=== PATIENT | male | born 1980 | race Two or more races ===

== ENCOUNTER 2018-05-28 18:06 | Emergency (ER) | payer BC ==
[2018-05-28 19:52] LABS: URINE SOURCE CLEAN C
[2018-05-28 19:55] LABS: URINE BILIRUBIN NEGATIVE (NEGATIVE); URINE BLOOD NEGATIVE (NEGATIVE); URINE GLUCOSE (UA) NEGATIVE (NEGATIVE); URINE KETONE NEGATIVE (NEGATIVE); URINE LEUKOCYTE ESTERASE NEGATIVE (NEGATIVE); URINE NITRATE NEGATIVE (NEGATIVE); URINE PROTEIN NEGATIVE (NEGATIVE); URINE UROBILINOGEN 0.2 E.U./dL (0.2 - 1.0)
[2018-05-28 19:56] LABS: URINE CLARITY CLEAR (CLEAR); URINE COLOR YELLOW; URINE MICROSCOPIC INDICATED? YES
[2018-05-28 19:58] LABS: URINE RBC 0-2 /hpf (0-5)
[2018-05-28 19:59] LABS: URINE BACTERIA FEW /hpf (NONE SEEN); URINE EPITHELIAL CELLS FEW /lpf (FEW); URINE WBC 0-2 /hpf (0-5)
--- NOTE | 2018-05-28 20:05 | ED Physician Chart ---
ED Chief Complaint/HPI - Patient Information Date Seen:: 05/28/18 Time Seen:: 19:59 Chief Complaint:: Headache and chest pain History of Present Illness:: 37 yo male had headache and diffuse pain, discomfort in the chest and epigastric area for 1 day. Patient denied nausea or vomiting. 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 Allergies:: Allergies Allergy/AdvReac Type Severity Reaction Status Date / Time No Known Allergies Allergy Verified 05/28/18 18:17 Vitals:: Vital Signs - 8 hr 05/28/18 18:18 Temp 97.8 F HR 71 RR 18 BP 108/74 O2 Sat % 99 ED Review of Systems - Review of Systems General/Constitutional: No fever Skin: No bruising Head: Headache Eyes: No pain ENT: No nasal drainage Neck: No neck pain Cardio Vascular: Chest pain Pulmonary: No SOB GI: No nausea, No vomiting Musculoskeletal: No muscle pain Psychiatric: Anxiety Neurological: No focal symptoms ED Past Medical History - Past Medical History Past Medical History: Other (psoriasis) Social History: Non Smoker, Alcohol, No Drug Use Surgical History: None Family Medical History - Family Member Mother History Unknown: Yes Ethnicity: Hx Family Cancer: No Hx Family Coronary Artery Disease: No Hx Family Congestive Heart Failure: No Hx Family Hypertension: No Hx Family Stroke: No Hx Family Diabetes: No Hx Family Seizures: No Hx Family Dementia: No Hx Family AIDS: No Hx Family HIV: No Hx Family COPD: No Hx Family Hepatitis: No Hx Family Psychiatric Problems: No Hx Family Tuberculosis: No ED Physical Exam - Physical Examination General/Constitutional: Awake Head: Atraumatic Other Head comments:: Tenderness at bilateral greater occipital nerve innervation areas Eyes: PERRL, EOMI Skin: No ecchymosis ENMT: Nasal exam nl Neck: No nuchal rigidity Respiratory: No Wheeze/Rhonchi/Rales Cardio Vascular: RRR, No murmur, gallop, rubs, NL S1 S2 GI: No tenderness/rebounding/guarding, Nondistended Extremities: normal strength in all extremities Neuro/Psych: No focal deficits ED Labs/Radiology/EKG Results - Lab Results Results: Laboratory Tests 05/28/18 19:20 Urine Color YELLOW Urine Clarity CLEAR Urine pH 6.0 Ur Specific [place] 1.025 Urine Protein NEGATIVE Urine Glucose (UA) NEGATIVE Urine Ketones NEGATIVE Urine Blood NEGATIVE Urine Nitrate NEGATIVE Urine Bilirubin NEGATIVE Urine Urobilinogen 0.2 Ur Leukocyte Esterase NEGATIVE Laboratory Last Values WBC 8.4 Th/cmm (4.8-10.8) 05/28/18 20:08 RBC 5.37 Mil/cmm (4.30-5.70) 05/28/18 20:08 Hgb 15.4 gm/dL (12-16) 05/28/18 20:08 Hct 47.3 % (41.0-60) 05/28/18 20:08 MCV 88.1 fl (80-99) 05/28/18 20:08 MCH 28.6 pg (26.0-30.0) 05/28/18 20:08 MCHC Differential 32.5 pg (28.0-36.0) 05/28/18 20:08 RDW 12.0 % (11.5-20.0) 05/28/18 20:08 Plt Count 278 Th/cmm (150-400) 05/28/18 20:08 MPV 7.3 fl 05/28/18 20:08 Neutrophils % 51.3 % (40.0-80.0) 05/28/18 20:08 Lymphocytes % 37.9 % (20.0-50.0) 05/28/18 20:08 Monocytes % 8.4 % (2.0-10.0) 05/28/18 20:08 Eosinophils % 1.8 % (0.0-5.0) 05/28/18 20:08 Basophils % 0.6 % (0.0-2.0) 05/28/18 20:08 Sodium 138 mEq/L (136-145) 05/28/18 20:08 Potassium 3.7 mEq/L (3.5-5.1) 05/28/18 20:08 Chloride 104 mEq/L (98-107) 05/28/18 20:08 Carbon Dioxide 25.2 mEq/L (21.0-31.0) 05/28/18 20:08 Anion Gap 12.5 (7.0-16.0) 05/28/18 20:08 BUN 15 mg/dL (7-25) 05/28/18 20:08 Creatinine 0.8 mg/dL (0.7-1.3) 05/28/18 20:08 Est GFR ( Amer) > 60.0 ml/min (>90) 05/28/18 20:08 Est GFR (Non-Af Amer) > 60.0 ml/min 05/28/18 20:08 BUN/Creatinine Ratio 18.8 05/28/18 20:08 Glucose 103 mg/dL (70-105) 05/28/18 20:08 Calcium 9.3 mg/dL (8.6-10.3) 05/28/18 20:08 Total Bilirubin 0.4 mg/dL (0.3-1.0) 05/28/18 20:08 AST 21 U/L (13-39) 05/28/18 20:08 ALT 40 U/L (7-52) 05/28/18 20:08 Alkaline Phosphatase 89 U/L (34-104) 05/28/18 20:08 Troponin I < 0.01 ng/mL (0.01-0.05) L 05/28/18 20:08 B-Natriuretic Peptide 6.6 pg/mL (5.0-100.0) 05/28/18 20:08 Total Protein 6.7 gm/dL (6.0-8.3) 05/28/18 20:08 Albumin 4.2 gm/dL (4.2-5.5) 05/28/18 20:08 Globulin 2.5 gm/dL 05/28/18 20:08 Albumin/Globulin Ratio 1.7 (1.0-1.8) 05/28/18 20:08 Lipase 21 U/L (11-82) 05/28/18 20:08 Urine Source CLEAN C 05/28/18 19:20 Urine Color YELLOW 05/28/18 19:20 Urine Clarity CLEAR (CLEAR) 05/28/18 19:20 Urine pH 6.0 (4.6 - 8.0) 05/28/18 19:20 Ur Specific [place] 1.025 (1.005-1.030) 05/28/18 19:20 Urine Protein NEGATIVE mg/dL (NEGATIVE) 05/28/18 19:20 Urine Glucose (UA) NEGATIVE mg/dL (NEGATIVE) 05/28/18 19:20 Urine Ketones NEGATIVE mg/dL (NEGATIVE) 05/28/18 19:20 Urine Blood NEGATIVE (NEGATIVE) 05/28/18 19:20 Urine Nitrate NEGATIVE (NEGATIVE) 05/28/18 19:20 Urine Bilirubin NEGATIVE (NEGATIVE) 05/28/18 19:20 Urine Urobilinogen 0.2 E.U./dL (0.2 - 1.0) 05/28/18 19:20 Ur Leukocyte Esterase NEGATIVE (NEGATIVE) 05/28/18 19:20 Urine RBC 0-2 /hpf (0-5) H 05/28/18 19:20 Urine WBC 0-2 /hpf (0-5) 05/28/18 19:20 Ur Epithelial Cells FEW /lpf (FEW) 05/28/18 19:20 Urine Bacteria FEW /hpf (NONE SEEN) 05/28/18 19:20 Urine Opiates Screen NEGATIVE (NEGATIVE) 05/28/18 19:20 Urine Methadone Screen NEGATIVE (NEGATIVE) 05/28/18 19:20 Ur Barbiturates Screen NEGATIVE (NEGATIVE) 05/28/18 19:20 Ur Tricyclics Screen NEGATIVE (NEGATIVE) 05/28/18 19:20 Ur Phencyclidine Scrn NEGATIVE (NEGATIVE) 05/28/18 19:20 Amphetamines Screen NEGATIVE (NEGATIVE) 05/28/18 19:20 U Methamphetamines Scrn NEGATIVE (NEGATIVE) 05/28/18 19:20 U Benzodiazepines Scrn NEGATIVE (NEGATIVE) 05/28/18 19:20 U Cocaine Metab Screen NEGATIVE (NEGATIVE) 05/28/18 19:20 U Cannabinoids Screen NEGATIVE (NEGATIVE) 05/28/18 19:20 - Radiology Results Results: CT head without contrast: No hemorrhage, minimal left frontal white matter disease, may need follow up MRI. Left maxillary sinusitis ED Assessment - Assessment General Assessment: Bilateral greater occipital neuralgia CT head finding of minimal left frontal white matter disease Assessment/Comments:: CBC, CMP, Trop I, BNP UA, urine drug screen CT head without contrast Toradol 30mg IM D/c home F/u PCP and neurologist with a MRI brain to rule out any white matter disease Return to ER if headache worsen ED Septic Shock - . Is Septic Shock (SBP<90, OR Lactate>4 mmol\L) present?: No - <6hrs of presentation: Vital Signs: Vital Signs - 8 hr 05/28/18 18:18 Temp 97.8 F HR 71 RR 18 BP 108/74 O2 Sat % 99 ED Reassessment (Disposition) - Reassessment Reassessment Condition:: Improved - Patient Disposition Discharge/Transfer:: Home
[2018-05-28 20:12] LABS: AMPHETAMINE URINE NEGATIVE (NEGATIVE); BARBITURATES URINE NEGATIVE (NEGATIVE)
[2018-05-28 20:13] LABS: BENZODIAZEPINES QUAL URINE NEGATIVE (NEGATIVE); CANNABINOID THC NEGATIVE (NEGATIVE); COCAINE METABOLITE QUAL URINE NEGATIVE (NEGATIVE); METHADONE URINE NEGATIVE (NEGATIVE); METHAMPHETAMINES QUAL URINE NEGATIVE (NEGATIVE); OPIATES (MORPHINE) QUAL. URINE NEGATIVE (NEGATIVE); PHENCYCLIDINE (PCP) URINE NEGATIVE (NEGATIVE); TRICYCLICS (TCA) QUAL. URINE NEGATIVE (NEGATIVE)
[2018-05-28 20:14] LABS: % BASOPHILS 0.6 % (0.0-2.0); % EOSINOPHILS 1.8 % (0.0-5.0); % LYMPHOCYTES 37.9 % (20.0-50.0); % MONOCYTES 8.4 % (2.0-10.0); % NEUTROPHILS 51.3 % (40.0-80.0); BASOPHILE ABSOLUTE 0.1 Th/cumm (0-0.2); EOSINOPHILE ABSOLUTE 0.2 Th/cmm (0.1-0.4); HEMATOCRIT 47.3 % (41.0-60); HEMOGLOBIN 15.4 gm/dL (12-16); LYMPHOCYTE ABSOLUTE 3.2 Th/cmm (1.5-3.0); MEAN CELL VOLUME 88.1 fl (80-99); MEAN CORPUSCULAR HEMOGLOBIN 28.6 pg (26.0-30.0); MEAN CORPUSCULAR HGB CONC 32.5 pg (28.0-36.0); MEAN PLATELET VOLUME 7.3 fl; MONOCYTE ABSOLUTE 0.7 Th/cmm (0.3-1.0); NEUTROPHILE ABSOLUTE 4.2 Th/cmm (1.8-8.0); PLATELET COUNT 278 Th/cmm (150-400); RED BLOOD COUNT 5.37 Mil/cmm (4.30-5.70); WHITE BLOOD COUNT 8.4 Th/cmm (4.8-10.8)
[2018-05-28 20:31] LABS: ALB/GLOB RATIO 1.7 (1.0-1.8); ALBUMIN 4.2 gm/dL (4.2-5.5); ALKALINE PHOSPHATASE 89 U/L (34-104); ANION GAP 12.5 (7.0-16.0); BILIRUBIN,TOTAL 0.4 mg/dL (0.3-1.0); BUN - UREA NITROGEN 15 mg/dL (7-25); CALCIUM SERUM 9.3 mg/dL (8.6-10.3); CARBON DIOXIDE 25.2 mEq/L (21.0-31.0); CHLORIDE 104 mEq/L (98-107); CREATININE - SERUM 0.8 mg/dL (0.7-1.3); GFR AFRICAN-AMERICAN > 60.0 ml/min (>90); GFR NON AFRICAN-AMERICAN > 60.0 ml/min; GLUCOSE 103 mg/dL (70-105); LIPASE 21 U/L (11-82); POTASSIUM SERUM 3.7 mEq/L (3.5-5.1); SGOT 21 U/L (13-39); SGPT/ALT 40 U/L (7-52); SODIUM SERUM 138 mEq/L (136-145); TOTAL PROTEIN,SERUM 6.7 gm/dL (6.0-8.3)
--- NOTE | 2018-05-29 08:57 | Diagnostic Imaging Report ---
Head CT without intravenous contrast Indication: pain Comparison: None Technique: Axial images were obtained from the vertex to the skull base without IV contrast. Coronal reconstructions were made. Total DLP: 698, CTD I 37 FINDINGS: Images of the brain obtained without contrast demonstrate no acute hemorrhage. The ventricles and basal cisterns are patent. There is subtle minimal low-attenuation change involving the high left frontal lobe. No mass effect or midline shift. There is opacification of the left maxillary sinus. Additional mucosal thickening of paranasal sinuses are noted. No skull fracture or focal soft tissue swelling. IMPRESSION: No evidence of acute intracranial hemorrhage. Subtle Minimal left high frontal lobe white matter disease. Findings are nonspecific and may be sequela previous chronic ischemic process. Correlation with old exams would be helpful for comparison. In addition, Follow-up MRI would provide additional detail and assessment of this finding Left maxillary sinusitis, probably chronic.
== END 2018-05-28 21:36 | disposition home or self-care (01) ==
LOC: ER 18:06
DX: M54.81 Occipital neuralgia (principal); F41.9 Anxiety disorder, unspecified
CPT/HCPCS: 99284; 96372; 70450; 84484; 83880; 36415; 80307; 85025; 81001; 83690; 80053; J1885; Z7502

== ENCOUNTER 2018-08-22 13:30 | Emergency (ER) | payer BC ==
--- NOTE | 2018-08-22 14:10 | ED Physician Chart ---
ED Chief Complaint/HPI - Patient Information Date Seen:: 08/22/18 Time Seen:: 13:55 Chief Complaint:: abdominal pain History of Present Illness:: Patient's had upper abdominal pain for last 2 weeks. No vomiting or diarrhea. No dysuria. No chills or fever. Pain appears to be unrelated to eating. Patient was seen here for headache in June and a CAT scan of the head was done which showed no evidence of acute intracranial hemorrhage. At that time he had milder abdominal pain. Patient has never had an EGD or colonoscopy. Allergies:: Allergies Allergy/AdvReac Type Severity Reaction Status Date / Time No Known Allergies Allergy Verified 05/28/18 18:17 Vitals:: Vital Signs - 8 hr 08/22/18 13:48 Temp 97.6 F HR 73 RR 16 BP 117/70 O2 Sat % 97 Historian:: Patient Review:: Nurse's Note Reviewed ED Review of Systems - Review of Systems General/Constitutional: No fever, No chills, No weight loss, No weakness, No diaphoresis, No edema, No loss of appetite Skin: No skin lesions, No rash, No bruising Head: No headache, No light-headedness Eyes: No loss of vision, No pain, No diplopia ENT: No earache, No nasal drainage, No sore throat, No tinnitus Neck: No neck pain, No swelling, No thyromegaly, No stiffness, No mass noted Cardio Vascular: No chest pain, No palpitations, No PND, No orthopnea, No edema Pulmonary: No SOB, No cough, No sputum, No wheezing GI: No nausea, No vomiting, No diarrhea, Pain, No melena, No hematochezia, No constipation, No hematemesis G/U: No dysuria, No frequency, No hematuria Musculoskeletal: No bone or joint pain, No back pain, No muscle pain Endocrine: No polyuria, No polydipsia Psychiatric: No prior psych history, No depression, No anxiety, No suicidal ideation Hematopoietic: No bruising, No lymphadenopathy Allergic/Immuno: No urticaria, No angioedema Neurological: No syncope, No focal symptoms, No weakness, No paresthesia, No headache, No seizure, No dizziness, No confusion, No vertigo ED Past Medical History - Past Medical History Past Medical History: Other (psoriasis) Family History: Heart disease, Diabetes [place] Social History: Non Smoker, Alcohol, Other (occasional alcohol consumption) Surgical History: other (bilateral heels) Psychiatricy History: None Medication: None Family Medical History - Family Member Mother History Unknown: Yes Ethnicity: Hx Family Cancer: No Hx Family Coronary Artery Disease: No Hx Family Congestive Heart Failure: No Hx Family Hypertension: No Hx Family Stroke: No Hx Family Diabetes: No Hx Family Seizures: No Hx Family Dementia: No Hx Family AIDS: No Hx Family HIV: No Hx Family COPD: No Hx Family Hepatitis: No Hx Family Psychiatric Problems: No Hx Family Tuberculosis: No ED Physical Exam - Physical Examination General/Constitutional: Awake, Well-developed, well-nourished, Alert, No distress, GCS 15, Non-toxic appearing, Ambulatory Head: Atraumatic Eyes: Lids, conjuctiva normal, PERRL, EOMI Skin: Nl inspection, No rash, No skin lesions, No ecchymosis, Well hydrated, No lymphadenopathy ENMT: External ears, nose nl, Nasal exam nl, Lips, teeth, gums nl Neck: Nontender, Full ROM w/o pain, No JVD, No nuchal rigidity, No bruit, No mass, No stridor Respiratory: Nl effort/Exclusion, Clear to Auscultation, No Wheeze/Rhonchi/Rales Cardio Vascular: RRR, No murmur, gallop, rubs, NL S1 S2 GI: No organomegaly, No hernia, Normal BS's, Nondistended, No mass/bruits Other GI comments:: Diffuse abdominal tenderness without guarding : No CVA tenderness Extremities: No tenderness or effusion, Full ROM, normal strength in all extremities, No edema, Normal digits & nails Neuro/Psych: Alert/oriented, DTR's symmetric, Normal sensory exam, Normal motor strength, Judgement/insight normal, Mood normal, Normal gait, No focal deficits Misc: Normal back, No paraspinal tenderness ED Labs/Radiology/EKG Results - Lab Results Results: Laboratory Results WBC 6.0 Th/cmm (4.8-10.8) 08/22/18 14:16 RBC 5.38 Mil/cmm (4.30-5.70) 08/22/18 14:16 Hgb 15.3 gm/dL (12-16) 08/22/18 14:16 Hct 46.3 % (41.0-60) 08/22/18 14:16 MCV 86.1 fl (80-99) 08/22/18 14:16 MCH 28.5 pg (26.0-30.0) 08/22/18 14:16 MCHC Differential 33.1 pg (28.0-36.0) 08/22/18 14:16 RDW 12.0 % (11.5-20.0) 08/22/18 14:16 Plt Count 262 Th/cmm (150-400) 08/22/18 14:16 MPV 7.6 fl 08/22/18 14:16 Neutrophils % 57.0 % (40.0-80.0) 08/22/18 14:16 Lymphocytes % 34.1 % (20.0-50.0) 08/22/18 14:16 Monocytes % 7.3 % (2.0-10.0) 08/22/18 14:16 Eosinophils % 1.1 % (0.0-5.0) 08/22/18 14:16 Basophils % 0.5 % (0.0-2.0) 08/22/18 14:16 Sodium 139 mEq/L (136-145) 08/22/18 14:16 Potassium 3.9 mEq/L (3.5-5.1) 08/22/18 14:16 Chloride 105 mEq/L (98-107) 08/22/18 14:16 Carbon Dioxide 25.9 mEq/L (21.0-31.0) 08/22/18 14:16 Anion Gap 12.0 (7.0-16.0) 08/22/18 14:16 BUN 13 mg/dL (7-25) 08/22/18 14:16 Creatinine 0.8 mg/dL (0.7-1.3) 08/22/18 14:16 Est GFR ( Amer) > 60.0 ml/min (>90) 08/22/18 14:16 Est GFR (Non-Af Amer) > 60.0 ml/min 08/22/18 14:16 BUN/Creatinine Ratio 16.3 08/22/18 14:16 Glucose 107 mg/dL (70-105) H 08/22/18 14:16 Calcium 9.1 mg/dL (8.6-10.3) 08/22/18 14:16 Lipase 13 U/L (11-82) 08/22/18 14:16 Urine Source [place] 08/22/18 14:00 Urine Color YELLOW 08/22/18 14:00 Urine Clarity CLEAR (CLEAR) 08/22/18 14:00 Urine pH 6.0 (4.6 - 8.0) 08/22/18 14:00 Ur Specific [place] 1.025 (1.005-1.030) 08/22/18 14:00 Urine Protein NEGATIVE mg/dL (NEGATIVE) 08/22/18 14:00 Urine Glucose (UA) NEGATIVE mg/dL (NEGATIVE) 08/22/18 14:00 Urine Ketones NEGATIVE mg/dL (NEGATIVE) 08/22/18 14:00 Urine Blood NEGATIVE (NEGATIVE) 08/22/18 14:00 Urine Nitrate NEGATIVE (NEGATIVE) 08/22/18 14:00 Urine Bilirubin NEGATIVE (NEGATIVE) 08/22/18 14:00 Urine Urobilinogen 0.2 E.U./dL (0.2 - 1.0) 08/22/18 14:00 Ur Leukocyte Esterase NEGATIVE (NEGATIVE) 08/22/18 14:00 Urine RBC NONE SEEN /hpf (0-5) 08/22/18 14:00 Urine WBC NONE SEEN /hpf (0-5) 08/22/18 14:00 Ur Epithelial Cells RARE /lpf (FEW) 08/22/18 14:00 Urine Bacteria NONE SEEN /hpf (NONE SEEN) 08/22/18 14:00 ED Assessment - Assessment General Assessment: Patient has seen Dr. Rhodes once and apparently got a referral to pigment pumper. Patient had a CAT scan of his abdomen and pelvis here 12/21 which showed moderate stool throughout the colon and mild diverticulosis without evidence of diverticulitis. I will prescribe Zantac 150 mg #30 to take 1 twice a day. I told the patient that he needs a EGD and possible colonoscopy. I also urged the patient to take Mylanta or Maalox for his discomfort ED Septic Shock - . Is Septic Shock (SBP<90, OR Lactate>4 mmol\L) present?: No - <6hrs of presentation: Vital Signs: Vital Signs - 8 hr 08/22/18 13:48 Temp 97.6 F HR 73 RR 16 BP 117/70 O2 Sat % 97 ED Reassessment (Disposition) - Reassessment Reassessment Condition:: Unchanged - Diagnosis Diagnosis:: Gastritis - Aftercare/Follow up Instructions Aftercare/Follow-Up Instructions:: Refer to Discharge Instructions Medication Prescribed:: Zantac 150 mg #30 to take 1 twice a day - Patient Disposition Discharge/Transfer:: Home Condition at Disposition:: Stable, Unchanged
[2018-08-22 14:22] LABS: URINE SOURCE MIDSTREAM
[2018-08-22 14:23] LABS: URINE BILIRUBIN NEGATIVE (NEGATIVE); URINE BLOOD NEGATIVE (NEGATIVE); URINE GLUCOSE (UA) NEGATIVE (NEGATIVE); URINE KETONE NEGATIVE (NEGATIVE); URINE LEUKOCYTE ESTERASE NEGATIVE (NEGATIVE); URINE NITRATE NEGATIVE (NEGATIVE); URINE PROTEIN NEGATIVE (NEGATIVE); URINE UROBILINOGEN 0.2 E.U./dL (0.2 - 1.0)
[2018-08-22 14:24] LABS: URINE CLARITY CLEAR (CLEAR); URINE COLOR YELLOW
[2018-08-22 14:26] LABS: % BASOPHILS 0.5 % (0.0-2.0); % EOSINOPHILS 1.1 % (0.0-5.0); % LYMPHOCYTES 34.1 % (20.0-50.0); % MONOCYTES 7.3 % (2.0-10.0); EOSINOPHILE ABSOLUTE 0.1 Th/cmm (0.1-0.4); HEMATOCRIT 46.3 % (41.0-60); HEMOGLOBIN 15.3 gm/dL (12-16); MEAN CELL VOLUME 86.1 fl (80-99); MEAN CORPUSCULAR HEMOGLOBIN 28.5 pg (26.0-30.0); MEAN CORPUSCULAR HGB CONC 33.1 pg (28.0-36.0); MEAN PLATELET VOLUME 7.6 fl; MONOCYTE ABSOLUTE 0.4 Th/cmm (0.3-1.0); NEUTROPHILE ABSOLUTE 3.5 Th/cmm (1.8-8.0); PLATELET COUNT 262 Th/cmm (150-400); RED BLOOD COUNT 5.38 Mil/cmm (4.30-5.70)
[2018-08-22 14:28] LABS: URINE MICROSCOPIC INDICATED? YES
[2018-08-22 14:31] LABS: URINE BACTERIA NONE SEEN /hpf (NONE SEEN); URINE EPITHELIAL CELLS RARE /lpf (FEW); URINE RBC NONE SEEN /hpf (0-5); URINE WBC NONE SEEN /hpf (0-5)
[2018-08-22 14:37] LABS: BUN - UREA NITROGEN 13 mg/dL (7-25); CALCIUM SERUM 9.1 mg/dL (8.6-10.3); CARBON DIOXIDE 25.9 mEq/L (21.0-31.0); CHLORIDE 105 mEq/L (98-107); CREATININE - SERUM 0.8 mg/dL (0.7-1.3); GFR AFRICAN-AMERICAN > 60.0 ml/min (>90); GFR NON AFRICAN-AMERICAN > 60.0 ml/min; GLUCOSE 107 mg/dL (70-105); LIPASE 13 U/L (11-82); POTASSIUM SERUM 3.9 mEq/L (3.5-5.1); SODIUM SERUM 139 mEq/L (136-145)
== END 2018-08-22 15:13 | disposition home or self-care (01) ==
LOC: ER 13:30
DX: K29.70 Gastritis, unspecified, without bleeding (principal)
CPT/HCPCS: 36415-UA; 80048-TC; 81001-TC; 83690-TC; 85025-TC; Z7502

== ENCOUNTER 2018-10-19 12:42 | Emergency (ER) | payer BC ==
[2018-10-19 13:16] LABS: % BASOPHILS 1.4 % (0.0-2.0); % LYMPHOCYTES 38.7 % (20.0-50.0); % MONOCYTES 9.9 % (2.0-10.0); BASOPHILE ABSOLUTE 0.1 Th/cumm (0-0.2); EOSINOPHILE ABSOLUTE 0.1 Th/cmm (0.1-0.4); HEMATOCRIT 46.8 % (41.0-60); HEMOGLOBIN 15.6 gm/dL (12-16); MEAN CELL VOLUME 87.7 fl (80-99); MEAN CORPUSCULAR HEMOGLOBIN 29.1 pg (26.0-30.0); MEAN CORPUSCULAR HGB CONC 33.2 pg (28.0-36.0); MEAN PLATELET VOLUME 7.5 fl; MONOCYTE ABSOLUTE 0.5 Th/cmm (0.3-1.0); NEUTROPHILE ABSOLUTE 2.4 Th/cmm (1.8-8.0); PLATELET COUNT 252 Th/cmm (150-400); RED BLOOD COUNT 5.34 Mil/cmm (4.30-5.70); RED CELL DISTRIBUTION WIDTH 11.6 % (11.5-20.0); WHITE BLOOD COUNT 5.1 Th/cmm (4.8-10.8)
--- NOTE | 2018-10-19 13:17 | ED Physician Chart ---
ED Chief Complaint/HPI - Patient Information Date Seen:: 10/19/18 Time Seen:: 12:55 Chief Complaint:: abdominal pain Allergies:: Allergies Allergy/AdvReac Type Severity Reaction Status Date / Time No Known Allergies Allergy Verified 10/19/18 12:44 Vitals:: Vital Signs - 8 hr 10/19/18 12:44 Temp 97 F HR 62 RR 18 BP 116/69 O2 Sat % 99 Historian:: Patient Review:: Nurse's Note Reviewed, Old Chart Reviewed ED Review of Systems - Review of Systems General/Constitutional: No fever, No chills, No weight loss, No weakness, No diaphoresis, No edema, No loss of appetite Skin: No skin lesions, No rash, No bruising Head: No headache, No light-headedness Eyes: No loss of vision, No pain, No diplopia ENT: No earache, No nasal drainage, No sore throat, No tinnitus Neck: No neck pain, No swelling, No thyromegaly, No stiffness, No mass noted Cardio Vascular: No chest pain, No palpitations, No PND, No orthopnea, No edema Pulmonary: No SOB, No cough, No sputum, No wheezing GI: No nausea, No vomiting, No diarrhea, Pain, No melena, No hematochezia, No constipation, No hematemesis G/U: No dysuria, No frequency, No hematuria Musculoskeletal: No bone or joint pain, No back pain, No muscle pain Endocrine: No polyuria, No polydipsia Psychiatric: No prior psych history, No depression, No anxiety, No suicidal ideation Hematopoietic: No bruising, No lymphadenopathy Allergic/Immuno: No urticaria, No angioedema Neurological: No syncope, No focal symptoms, No weakness, No paresthesia, No headache, No seizure, No dizziness, No confusion, No vertigo ED Past Medical History - Past Medical History Obtainable: Yes Past Medical History: PUD/GERD Family History: None Social History: Non Smoker, Alcohol, No Drug Use, Employed Surgical History: other (bilateral heel surgery) Family Medical History - Family Member Mother History Unknown: Yes Ethnicity: Living Status: Still Living Hx Family Cancer: No Hx Family Coronary Artery Disease: No Hx Family Congestive Heart Failure: No Hx Family Hypertension: No Hx Family Stroke: No Hx Family Diabetes: No Hx Family Seizures: No Hx Family Dementia: No Hx Family AIDS: No Hx Family HIV: No Hx Family COPD: No Hx Family Hepatitis: No Hx Family Psychiatric Problems: No Hx Family Tuberculosis: No ED Physical Exam - Physical Examination General/Constitutional: Awake, Well-developed, well-nourished, Alert, No distress, GCS 15, Non-toxic appearing, Ambulatory Head: Atraumatic Eyes: Lids, conjuctiva normal, PERRL, EOMI Skin: Nl inspection, No rash, No skin lesions, No ecchymosis, Well hydrated, No lymphadenopathy ENMT: External ears, nose nl, Nasal exam nl, Lips, teeth, gums nl Neck: Nontender, Full ROM w/o pain, No JVD, No nuchal rigidity, No bruit, No mass, No stridor Respiratory: Nl effort/Exclusion, Clear to Auscultation, No Wheeze/Rhonchi/Rales Cardio Vascular: RRR, No murmur, gallop, rubs, NL S1 S2 GI: No tenderness/rebounding/guarding (minimal tenderness), No organomegaly, No hernia, Normal BS's, Nondistended, No mass/bruits, No McBurney tenderness : No CVA tenderness Extremities: No tenderness or effusion, Full ROM, normal strength in all extremities, No edema, Normal digits & nails Neuro/Psych: Alert/oriented, DTR's symmetric, Normal sensory exam, Normal motor strength, Judgement/insight normal, Mood normal, Normal gait, No focal deficits Misc: Normal back, No paraspinal tenderness ED Labs/Radiology/EKG Results - Lab Results Results: Abnormal Lab Results 10/19/18 10/19/18 10/19/18 13:04 13:04 13:04 WBC 5.1 RBC 5.34 Hgb 15.6 Hct 46.8 MCV 87.7 MCH 29.1 MCHC Differential 33.2 RDW 11.6 Plt Count 252 MPV 7.5 Neutrophils % 48.0 Lymphocytes % 38.7 Monocytes % 9.9 Eosinophils % 2.0 Basophils % 1.4 PT 10.3 INR 0.99 PTT (Actin FS) 27.6 Sodium 139 Potassium 3.9 Chloride 104 Carbon Dioxide 24.3 Anion Gap 14.6 BUN 12 Creatinine 0.8 Est GFR ( Amer) > 60.0 Est GFR (Non-Af Amer) > 60.0 BUN/Creatinine Ratio 15.0 Glucose 102 Calcium 9.2 Total Bilirubin 0.7 AST 21 ALT 29 Alkaline Phosphatase 110 H Troponin I Total Protein 7.3 Albumin 4.6 Globulin 2.7 Albumin/Globulin Ratio 1.7 Urine Source Urine Color Urine Clarity Urine pH Ur Specific [place] Urine Protein Urine Glucose (UA) Urine Ketones Urine Blood Urine Nitrate Urine Bilirubin Urine Urobilinogen Ur Leukocyte Esterase 10/19/18 10/19/18 13:04 13:15 WBC RBC Hgb Hct MCV MCH MCHC Differential RDW Plt Count MPV Neutrophils % Lymphocytes % Monocytes % Eosinophils % Basophils % PT INR PTT (Actin FS) Sodium Potassium Chloride Carbon Dioxide Anion Gap BUN Creatinine Est GFR ( Amer) Est GFR (Non-Af Amer) BUN/Creatinine Ratio Glucose Calcium Total Bilirubin AST ALT Alkaline Phosphatase Troponin I < 0.01 L Total Protein Albumin Globulin Albumin/Globulin Ratio Urine Source CLEAN C Urine Color YELLOW Urine Clarity CLEAR Urine pH 5.5 Ur Specific [place] >= 1.030 Urine Protein NEGATIVE Urine Glucose (UA) NEGATIVE Urine Ketones NEGATIVE Urine Blood NEGATIVE Urine Nitrate NEGATIVE Urine Bilirubin NEGATIVE Urine Urobilinogen 0.2 Ur Leukocyte Esterase NEGATIVE ED Assessment - Assessment General Assessment: leg ulcer ED Septic Shock - . Is Septic Shock (SBP<90, OR Lactate>4 mmol\L) present?: No - <6hrs of presentation: Vital Signs: Vital Signs - 8 hr 10/19/18 12:44 Temp 97 F HR 62 RR 18 BP 116/69 O2 Sat % 99 ED Reassessment (Disposition) - Reassessment Reassessment Condition:: Unchanged - Diagnosis Diagnosis:: open ulcer of the left lower leg - Aftercare/Follow up Instructions Aftercare/Follow-Up Instructions:: Counseled pt regarding lab results/diagnosis & need follow up, Refer to Discharge Instructions, Counseled pt & family regarding lab results/diagnosis & need follow up - Patient Disposition Discharge/Transfer:: Home Condition at Disposition:: Improved
[2018-10-19 13:21] LABS: INR 0.99 (0.5-1.4); PROTHROMBIN TIME (TEST) 10.3 SECONDS (9.5-11.5)
[2018-10-19 13:23] LABS: URINE SOURCE CLEAN C
[2018-10-19 13:28] LABS: URINE BILIRUBIN NEGATIVE (NEGATIVE); URINE BLOOD NEGATIVE (NEGATIVE); URINE GLUCOSE (UA) NEGATIVE (NEGATIVE); URINE KETONE NEGATIVE (NEGATIVE); URINE LEUKOCYTE ESTERASE NEGATIVE (NEGATIVE); URINE NITRATE NEGATIVE (NEGATIVE); URINE PH 5.5 (4.6 - 8.0); URINE PROTEIN NEGATIVE (NEGATIVE); URINE UROBILINOGEN 0.2 E.U./dL (0.2 - 1.0)
[2018-10-19 13:30] LABS: URINE CLARITY CLEAR (CLEAR); URINE COLOR YELLOW; URINE MICROSCOPIC INDICATED? NO
[2018-10-19 13:31] LABS: ALB/GLOB RATIO 1.7 (1.0-1.8); ALBUMIN 4.6 gm/dL (4.2-5.5); ALKALINE PHOSPHATASE 110 U/L (34-104); ANION GAP 14.6 (7.0-16.0); BILIRUBIN,TOTAL 0.7 mg/dL (0.3-1.0); BUN - UREA NITROGEN 12 mg/dL (7-25); CALCIUM SERUM 9.2 mg/dL (8.6-10.3); CARBON DIOXIDE 24.3 mEq/L (21.0-31.0); CHLORIDE 104 mEq/L (98-107); CREATININE - SERUM 0.8 mg/dL (0.7-1.3); GFR AFRICAN-AMERICAN > 60.0 ml/min (>90); GFR NON AFRICAN-AMERICAN > 60.0 ml/min; GLUCOSE 102 mg/dL (70-105); POTASSIUM SERUM 3.9 mEq/L (3.5-5.1); SGOT 21 U/L (13-39); SGPT/ALT 29 U/L (7-52); SODIUM SERUM 139 mEq/L (136-145); TOTAL PROTEIN,SERUM 7.3 gm/dL (6.0-8.3)
--- NOTE | 2018-10-20 10:03 | Diagnostic Imaging Report ---
Abdominal ultrasound HISTORY: Pain The liver exhibits a homogeneous parenchyma. No focal lesions. The gallbladder appears normal. No calculi are seen. No biliary dilatation. Pancreas cannot be well seen due to bowel gas. The kidneys appear normal bilaterally. No other retroperitoneal or intra-abdominal abnormalities. IMPRESSION: Negative examination
== END 2018-10-19 14:30 | disposition home or self-care (01) ==
LOC: ER 12:42
DX: L97.929 Non-pressure chronic ulcer of unspecified part of left lower leg with unspecified severity (principal); K21.9 Gastro-esophageal reflux disease without esophagitis
CPT/HCPCS: 99284; 96372; 76700; 84484; 36415; 85025; 85610; 85730; 81003; 80053; 87040 ×2; J1885